=== PATIENT | male | born 1960 | race Caucasian/White ===

== ENCOUNTER 2018-08-16 05:44 | Emergency (ER) | payer OTHER ==
[~2018-08-16] VITALS: Ht 170.2 cm; Wt 103.9 kg
[~2018-08-16 05:44] MED LIST: CEPH-443 PO; HYDR-4011 PO; SULF1TAB31 PO
[2018-08-16 05:45] VITALS: BP 157/90; PULSE 110; RESP 19; Ht 170.2 cm; Wt 103.9 kg
[2018-08-16] MEDS ORDERED: LIDOCAINE 1% (MDV) 20 ML INJ SC ONE (06:30)
[2018-08-16] MEDS ORDERED: HYDR-4011 PO (07:18)
--- NOTE | 2018-08-16 07:43 | ERD ---
ER Documentation Chief Complaint Chief Complaint ABSCESS; RECHECK, TOLD TO COME BACK TOAY; ON ATBs HPI Patient is a 58-year-old male who presents ER for concerns of an abscess to his upper back. Patient was seen here 2 days ago and started on antibiotics. Patient reports compliance with antibiotics. He states that he has been using warm compresses and he states the abscess has become softer. Patient denies any fevers or chills. Patient denies any chest pain, shortness of breath, lower back pain, saddle anesthesia, urine incontinence or stool incontinence. ROS All systems reviewed and are negative except as per history of present illness. Medications Home Meds Active Scripts Hydrocodone/Acetaminophen ([place] 5-325 Tablet) 1 Each Tablet, 1 TAB PO Q6H PRN for PAIN, #5 TAB Prov:CAPRI BURGOS PA-C 08/16/18 Hydrocodone/Acetaminophen ([place] 5-325 Tablet) 1 Each Tablet, 1 TAB PO Q6H PRN for PAIN, #7 TAB Prov:TRUPTI LUNA PA-C 08/13/18 Cephalexin* (Keflex*) 500 Mg Capsule, 500 MG PO QID for 7 Days, #28 CAP Prov:TRUPTI LUNA PA-C 08/13/18 Sulfamethoxazole/Trimethoprim* (Bactrim Ds* Tablet) 1 Each Tablet, 1 TAB PO BID, #14 TAB Prov:TRUPTI LUNA PA-C 08/13/18 Allergies Allergies: Coded Allergies: No Known Allergy (Unverified , 08/16/18) PMhx/Soc Medical and Surgical Hx: pt denies Surgical Hx Hx Neurological Disorder: No Hx Respiratory Disorders: No Hx Cardiac Disorders: Yes (htn) Hx Psychiatric Problems: No Hx Miscellaneous Medical Probl: No Hx Alcohol Use: No Hx Substance Use: No Hx Tobacco Use: No FmHx Family History: No diabetes Physical Exam Vitals Vital Signs Date Temp Pulse Resp B/P (MAP) Pulse Ox O2 O2 Flow FiO2 Time Delivery Rate 08/16/18 98.3 110 19 157/90 96 05:45 (112) Physical Exam GENERAL: Well-developed, well-nourished male. Appears in no acute distress. HEAD: Normocephalic, atraumatic. EYES: Pupils are equally reactive bilaterally. EOMs grossly intact. No conjunctival erythema. ENT: Moist mucous membranes. No uvula deviation. No kissing tonsils. NECK: Supple. No meningismus. Normal range of motion of the neck. LUNG: Clear to auscultation bilaterally. No rhonchi, wheezing, rales or coarse breath sounds. HEART: Regular rate and rhythm. No murmurs, rubs or gallops. EXTREMITIES: Equal pulses bilaterally. No peripheral clubbing, cyanosis or edema. No unilateral leg swelling. NEUROLOGIC: Alert and oriented. Moving all four extremities without any difficulty. Normal speech. Steady gait. SKIN: Mass, fluctuant area noted in the mid/left upper back consistent with an abscess. Fluctuance noted. No streaking. Results 24 hrs Current Medications Medications Dose Sig/Zuri Start Time Status Last (Trade) Ordered Route PRN Stop Time Admin Dose Reason Admin Lidocaine 20 ml ONCE ONCE 08/16/18 DC (Xylocaine SC 06:30 08/16/18 1% (Mdv) 20 06:31 ml) Procedures/MDM ED COURSE: The patient was stable throughout ED course. I kept the patient and/or family informed of laboratory and diagnostic imaging results throughout the ED course. PROCEDURES: INCISION AND DRAINAGE: The patient was verbally consented prior to procedure. Patient was explained the risks, benefits and alternatives to this procedure. Location: upper back Abscess size: 3 cm round Anesthesia: local 1% lidocaine, 5 cc Preparation: The area was prepped in a sterile fashion using betadine x3 cleanses. A sterile field was prepared. Technique: A sterile 11 blade scalpel was used to make a 1 cm linear incision into the abscess. Procedure: A midline abscess incision was made using a sterile scalpel in a linear fashion. Purulent material was expressed with direct pressure. Blunt probing was used to break up loculations. Bleeding was minimal. Packing: half iodoform packing was placed into the wound. The patient tolerated the procedure well with no complications. The wound was dressed in sterile gauze. The patient was neurovascularly intact post-procedure. Post-procedural wound care was discussed with the patient. MEDICAL DECISION MAKING: Patient is a 58-year-old male presents ER for concerns of abscess to upper back. Patient was advised to return here after he was started on antibiotics 2 days ago. Patient reports using warm compresses. Vital signs were reviewed. Patient is afebrile. Patient was not hypoxic. Patient was hemodynamically stable. Physical exam findings did reveal a fluctuant mass in the patient's upper back. Incision and drainage was performed. Patient tolerated procedure well. Parent material was expressed from wound site. Packing was placed. Patient was advised to return in 2 days for wound recheck. Patient was to continue to antibiotic as prescribed. Patient states he is finished the prescription for Gran[place] and is requesting a refill. I explained to the patient will provide him with an additional short course of 5 tabs. Patient was advised that this medication is extremely addicting and he should avoid taking it if his pain is not severe. Patient understood. Patient was nontoxic, non-opening prior to discharge. Low suspicion for sepsis, deep space infection. Wound recheck advised in 2 days. DISCHARGE: At this time, patient is stable for discharge and outpatient management. I have instructed the patient to follow-up with his/her primary care physician in 1-2 days. I have discussed with the patient the possibility of needing to see a specialist for further workup and imaging studies if symptoms persist. I have instructed the patient to promptly return to the ER for any new or worsening symptoms including increased pain, fever, nausea, vomiting, weakness or LOC. The patient and/or family expressed understanding of and agreement with this plan. All questions were answered. Home care instructions were provided. Disclaimer: Inadvertent spelling and grammatical errors are likely due to EHR/dictation software use and do not reflect on the overall quality of patient care. Also, please note that the electronic time recorded on this note does not necessarily reflect the actual time of the patient encounter. Departure Diagnosis: Primary Impression: Abscess Condition: Stable Patient Instructions: Abscess, Incision And Drainage Referrals: [facility] YOU HAVE RECEIVED A MEDICAL SCREENING EXAM AND THE RESULTS INDICATE THAT YOU DO NOT HAVE A CONDITION THAT REQUIRES URGENT TREATMENT IN THE EMERGENCY DEPARTMENT. FURTHER EVALUATION AND TREATMENT OF YOUR CONDITION CAN WAIT UNTIL YOU ARE SEEN IN YOUR DOCTORS OFFICE WITHIN THE NEXT 1-2 DAYS. IT IS YOUR RESPONSIBILITY TO MAKE AN APPOINTMENT FOR FOLOW-UP CARE. IF YOU HAVE A PRIMARY DOCTOR --you should call your primary doctor and schedule an appointment IF YOU DO NOT HAVE A PRIMARY DOCTOR YOU CAN CALL OUR PHYSICIAN REFERRAL HOTLINE AT IF YOU CAN NOT AFFORD TO SEE A PHYSICIAN YOU CAN CHOSE FROM THE FOLLOWING [facility] [address] [facility] [address] [facility] [address] [facility] [address] [facility] [address] [facility]. [facility] [address] [facility]. [facility] YOU HAVE RECEIVED A MEDICAL SCREENING EXAM AND THE RESULTS INDICATE THAT YOU DO NOT HAVE A CONDITION THAT REQUIRES URGENT TREATMENT IN THE EMERGENCY DEPARTMENT. FURTHER EVALUATION AND TREATMENT OF YOUR CONDITION CAN WAIT UNTIL YOU ARE SEEN IN YOUR DOCTORS OFFICE WITHIN THE NEXT 1-2 DAYS. IT IS YOUR RESPONSIBILITY TO MAKE AN APPOINTMENT FOR FOLOW-UP CARE. IF YOU HAVE A PRIMARY DOCTOR --you should call your primary doctor and schedule and appointment IF YOU DO NOT HAVE A PRIMARY DOCTOR YOU CAN CALL OUR PHYSICIAN REFERRAL HOTLINE AT . IF YOU CAN NOT AFFORD TO SEE A PHYSICIAN YOU CAN CHOSE FROM THE FOLLOWING [facility] INSTITUTIONS: [facility] [address] [place] [address] [facility] [address] [place] [address] [facility] [address] [place] [address] Additional Instructions: Wound recheck advised in 2 days. Continue antibiotics. CAPRI BURGOS PA-C Aug 16, 2018 07:43
== END 2018-08-16 07:30 | disposition home or self-care (01) ==
LOC: FTE 05:44
DX: L02.212 Cutaneous abscess of back [any part, except buttock and flank] (principal); I10 Essential (primary) hypertension
CPT/HCPCS: 10060; Z7502; Z7610

== ENCOUNTER 2018-08-18 06:02 | Emergency (ER) | payer OTHER ==
[~2018-08-18] VITALS: Ht 170.2 cm; Wt 104.2 kg
[2018-08-18 06:11] VITALS: BP 127/80; PULSE 100; RESP 18; Ht 170.2 cm; Wt 104.2 kg
--- NOTE | 2018-08-18 06:58 | ERD ---
ER Documentation Chief Complaint Chief Complaint Back abscess follow-up HPI Patient is a 58-year-old male with hypertension who presents for an abscess recheck. The patient said that he came to the emergency department on Thursday and had it cut open on that day. He was told to return for a recheck today. He is taking antibiotics and pain medication. He has no fevers. The abscesses on his upper back. The patient's primary doctor is Dr. Nahum Royal. ROS All systems reviewed and are negative except as per history of present illness. Medications Home Meds Active Scripts Hydrocodone/Acetaminophen ([place] 5-325 Tablet) 1 Each Tablet, 1 TAB PO Q6H PRN for PAIN, #5 TAB Prov:CAPRI BURGOS PA-C 08/16/18 Hydrocodone/Acetaminophen ([place] 5-325 Tablet) 1 Each Tablet, 1 TAB PO Q6H PRN for PAIN, #7 TAB Prov:TRUPTI LUNA PA-C 08/13/18 Cephalexin* (Keflex*) 500 Mg Capsule, 500 MG PO QID for 7 Days, #28 CAP Prov:TRUPTI LUNA PA-C 08/13/18 Sulfamethoxazole/Trimethoprim* (Bactrim Ds* Tablet) 1 Each Tablet, 1 TAB PO BID, #14 TAB Prov:TRUPTI LUNA PA-C 08/13/18 Allergies Allergies: Coded Allergies: No Known Allergy (Unverified , 08/18/18) PMhx/Soc Medical and Surgical Hx: pt denies Surgical Hx Hx Neurological Disorder: No Hx Respiratory Disorders: No Hx Cardiac Disorders: Yes (htn) Hx Psychiatric Problems: No Hx Miscellaneous Medical Probl: No Hx Alcohol Use: No Hx Substance Use: No Hx Tobacco Use: No Smoking Status: Never smoker FmHx Family History: No diabetes Physical Exam Vitals Vital Signs Date Temp Pulse Resp B/P (MAP) Pulse Ox O2 O2 Flow FiO2 Time Delivery Rate 08/18/18 97.3 100 18 127/80 96 06:11 (96) Physical Exam Const: No acute distress Head: Atraumatic Eyes: Normal Conjunctiva ENT: Normal External Ears, Nose and Mouth. Neck: Full range of motion. No meningismus. Resp: Clear to auscultation bilaterally Cardio: Regular rate and rhythm, no murmurs Abd: Soft, non tender, non distended. Normal bowel sounds Skin: Abscess to the left upper back with surrounding erythema Back: Approximately 4 x 4 centimeter abscess to the upper left back with fluctuance Ext: No cyanosis, or edema Neur: Awake and alert Psych: Normal Mood and Affect Procedures/MDM Abscess Incision and Drainage with irrigation by me: Location: Left upper back Anesthesia: None required Technique: I removed the packing from the incision site and there was copious expression of pus and blood at that time. I used gentle pressure to remove all the remaining abscess and then a sterile dressing was applied. I will will not repack this wound. Packing: [None] Complications: [Neurovascularly intact post procedure] Patient can follow-up with the primary doctor within 1 week to ensure resolution. Scar minimization instructions given. Patient's skin symptoms have stabilized while they have been evaluated in the department and are appropriate for outpatient care and work up. Exam and w/u not consistent w/ sepsis, deep space infection, or foreign body. Departure Diagnosis: Primary Impression: Abscess Condition: Fair Patient Instructions: Abscess, Incision And Drainage Referrals: Dr. Nahum Royal Additional Instructions: Call your primary care doctor TOMORROW for an appointment during the next 1 WEEK.Tell the social secretary that you were referred from this facility.See the doctor sooner or return here if your condition worsens before your appointment time. DEAN WALKER MD Aug 18, 2018 06:58
== END 2018-08-18 07:17 | disposition home or self-care (01) ==
LOC: FTE 06:02
DX: L02.212 Cutaneous abscess of back [any part, except buttock and flank] (principal); I10 Essential (primary) hypertension
CPT/HCPCS: 10060; Z7502